=== PATIENT | female | born 2000 | race African-American/Black ===

== ENCOUNTER 2019-01-25 13:40 | Emergency (ER) | payer SELFPAY ==
[~2019-01-25] VITALS: Ht 167.6 cm; Wt 67.0 kg
[2019-01-25] MEDS ORDERED: BACITRACIN ZINC OINT UDPKT TOP ONE (15:15)
[2019-01-25] MEDS ORDERED: IBUPROFEN 600MG TABLET PO ONE (15:15)
[2019-01-25] MEDS ORDERED: BACITRACIN 15GM TUBE TOP SCH (16:45)
[2019-01-25] MEDS ORDERED: TETANUS, DIPHTHERIA, PERTUSSIS VAC/PF 0.5ML (>7YR OLD) IM ONE (17:15)
[2019-01-25 18:08] VITALS: BP 121/81
== END 2019-01-25 18:19 | disposition home or self-care (01) ==
LOC: ER 13:40
DX: S63.501A Unspecified sprain of right wrist, initial encounter (principal); S60.512A Abrasion of left hand, initial encounter; S09.90XA Unspecified injury of head, initial encounter; F12.10 Cannabis abuse, uncomplicated; F17.200 Nicotine dependence, unspecified, uncomplicated; V29.9XXA Motorcycle rider (driver) (passenger) injured in unspecified traffic accident, initial encounter; Y93.89 Activity, other specified; Y92.89 Other specified places as the place of occurrence of the external cause; Y99.8 Other external cause status
CPT/HCPCS: 29125; 73110; 90471; 90715; 99284; A4565